=== PATIENT | male | born 1970 | race African-American/Black ===

== ENCOUNTER 2016-12-05 21:58 | Emergency (ER) | payer OTHER ==
[~2016-12-05] VITALS: Ht 193 cm; Wt 94.9 kg
[~2016-12-05 21:58] MED LIST: AMLODIPINE BESYL5 MG PO; ASPIR 8181 M1; ASPIR 8181 M1 PO; BAYER CHEWABLE81 MG PO; CATAPRES0.1 MG PO; ERGOCALCIF50000 UNIT PO; HYDROCHLOROTHIA25 MG PO; KLOR-CON M2020 MEQ PO; LIDOCAINE700 MG TD; LOPRESSOR50 MG PO; MEDROL DOSEPAK4 MG PO; METOPROLOL TART25 MG PO; NAPROSYN500 MG PO; NAPROXEN500 MG PO; NEURONTIN300 MG PO; NORCO 5/3251 TABLET PO; PLAVIX75 MG PO; PRAVACHOL40 MG PO; PRAVACHOL80 MG PO; PREDNISONE10 MG PO; ULTRACET1 TABLET PO; VALIUM2 MG PO; VITAMIN D-32000 UNI1 PO; ZESTRIL20 MG PO
[2016-12-05 23:33] VITALS: BP 140/101
== END 2016-12-05 23:30 | disposition home or self-care (01) ==
LOC: EME 21:58
DX: R51 Headache (principal); I10 Essential (primary) hypertension; E78.5 Hyperlipidemia, unspecified; I25.2 Old myocardial infarction; Z98.61 Coronary angioplasty status; Z79.82 Long term (current) use of aspirin
CPT/HCPCS: 99281; 99284; J1885

== ENCOUNTER 2017-08-25 10:15 | Emergency (ER) | payer OTHER ==
[~2017-08-25] VITALS: Ht 193 cm; Wt 96.3 kg
[2017-08-25] MEDS ORDERED: FLEXERIL10 MG PO (14:58)
[2017-08-25] MEDS ORDERED: NAPROXEN500 MG PO (14:58)
[2017-08-25 15:18] VITALS: BP 143/96
== END 2017-08-25 15:19 | disposition home or self-care (01) ==
LOC: EME 10:15
DX: M62.838 Other muscle spasm (principal); M25.561 Pain in right knee; M25.562 Pain in left knee; R20.0 Anesthesia of skin; M17.11 Unilateral primary osteoarthritis, right knee; I25.2 Old myocardial infarction; I10 Essential (primary) hypertension; E78.5 Hyperlipidemia, unspecified; Z95.5 Presence of coronary angioplasty implant and graft; Z79.82 Long term (current) use of aspirin
CPT/HCPCS: 73564; 99281; 99283

== ENCOUNTER 2017-11-02 19:40 | Emergency (ER) | payer OTHER ==
[~2017-11-02] VITALS: Ht 193 cm; Wt 96.5 kg
[~2017-11-02 19:40] MED LIST changes: +FLEXERIL10 MG PO
[2017-11-02] MEDS ORDERED: ULTRACET1 TABLET PO (22:45)
[2017-11-02 23:01] VITALS: BP 136/88
== END 2017-11-02 23:02 | disposition home or self-care (01) ==
LOC: EME 19:40
DX: S86.912A Strain of unspecified muscle(s) and tendon(s) at lower leg level, left leg, initial encounter (principal); Y93.67 Activity, basketball; I10 Essential (primary) hypertension; E78.5 Hyperlipidemia, unspecified; I25.2 Old myocardial infarction; Z79.82 Long term (current) use of aspirin; Z95.5 Presence of coronary angioplasty implant and graft
CPT/HCPCS: 93971; 99281; 99284